=== PATIENT | female | born 1985 | race Hispanic/Latino ===

== ENCOUNTER 2016-08-28 20:31 | Emergency (ER) | payer MEDICAID ==
[2016-08-28 20:32] VITALS: BMI 29.2
[2016-08-28 20:51] VITALS: BP 107/90; PULSE 88; RESP 18; TEMP 99.3; O2SAT 100
[2016-08-28] MEDS ORDERED: Sodium Chloride 0.9% 1,000 ML IV STA (21:09)
[2016-08-28] MEDS ORDERED: DiphenhydrAMINE 50 mg/ml Inj IV STA ×2 (21:09→22:22)
[2016-08-28 22:03] LABS: BASO # 0.1 K/uL (0.0-0.2); BASO % 1.1 % (0.0-2.0); EOS # 0.1 K/uL (0.0-0.7); EOS % 1.4 % (0.0-4.0); HEMATOCRIT 37.9 % (34.0-47.0); LYMPH # 1.1 K/uL (1.0-4.3); LYMPH % 23.9 % (20.0-40.0); MEAN CELL VOLUME 96.3 fl (81.0-99.0); MEAN CORPUSCULAR HEMOGLOBIN 31.8 pg (27.0-31.0); MEAN PLATELET VOLUME 10.4 fl (7.2-11.7); MONO # 0.6 K/uL (0.0-0.8); NEUT # 2.7 K/uL (1.8-7.0); NEUT % 60.6 % (50.0-75.0); NRBC % 0.1 % (0.0-0.0); RED CELL DISTRIBUTION WIDTH 18.2 % (11.5-14.5); WHITE BLOOD COUNT 4.5 K/uL (4.8-10.8)
--- NOTE | 2016-08-28 22:21 | ED PDOC ---
HPI: Abdomen Time Seen by Provider: 08/28/16 20:58 Chief Complaint (Nursing): Abdominal Pain Chief Complaint (Provider): Abdominal Pain History Per: Patient History/Exam Limitations: no limitations Onset/Duration Of Symptoms: Days (14 days) Outside of [place] travel?: No Current Symptoms Are (Timing): Still Present Additional Complaint(s): Ila Castro, a 31 year old female, who has a past medical history of chronic abdominal pain and fibroids presents to the ED with abdominal pain x2 weeks. The patient reports that she was at [facility] 2 weeks ago for similar symptoms, she followed up with [facility] where she was given tramadol and zofran which offered no improvements. The patient has a history of multiple ED visits for the same complaints. She reports that she went [facility] earlier today but left because of the long wait. Past Medical History Vital Signs: Last Vital Signs Temp 99.3 F 08/28/16 20:45 Pulse 88 08/28/16 20:45 Resp 18 08/28/16 20:45 BP 107/90 08/28/16 20:45 Pulse Ox 100 08/28/16 22:28 - Medical History PMH: Anxiety, Asthma, Bipolar Disorder (Unknown), Depression, Gastritis, GERD Denies: HIV, Chronic Kidney Disease, Seizures, Sexually Transmitted Disease Other PMH: Chronic abdominal pain;Fibroids - Surgical History Surgical History: No Surg Hx - Family History Family History: States: Unknown Family Hx - Immunization History Hx Tetanus Toxoid Vaccination: Yes Hx Influenza Vaccination: No Hx Pneumococcal Vaccination: No - Home Medications Home Medications: Ambulatory Orders Medication Instructions Recorded Montelukast Sodium [Singulair] 10 mg PO DAILY 08/19/16 Omeprazole 20 mg PO DAILY 08/19/16 Ondansetron [Zofran Odt] 4 mg PO Q8 PRN #10 odt 08/19/16 Sertraline [Zoloft] 150 mg PO DAILY 08/19/16 traMADol [Ultram] 50 mg PO BID PRN #12 tab 08/19/16 traZODone [Desyrel] 50 mg PO HS 08/19/16 - Allergies Allergies/Adverse Reactions: Allergies Allergy/AdvReac Type Severity Reaction Status Date / Time ciprofloxacin [From Cipro] Allergy URTICARIA Verified 08/28/16 17:10 ciprofloxacin HCl Allergy URTICARIA Verified 08/28/16 17:10 [From Cipro] ketorolac tromethamine Allergy SHORTNESS Verified 08/28/16 17:10 [From Toradol] OF BREATH Review of Systems ROS Statement: Except As Marked, All Systems Reviewed And Found Negative Gastrointestinal: Positive for: Abdominal Pain Physical Exam - Reviewed Nursing Documentation Reviewed: Yes Vital Signs Reviewed: Yes - Physical Exam Appears: Positive for: Non-toxic, No Acute Distress (Tearful and crying) Head Exam: Positive for: ATRAUMATIC, NORMOCEPHALIC Skin: Positive for: Normal Color, Warm, Dry Eye Exam: Positive for: Normal appearance, EOMI, PERRL ENT: Positive for: Normal ENT Inspection Neck: Positive for: Normal, Painless ROM, Supple Cardiovascular/Chest: Positive for: Regular Rate, Rhythm, Chest Non Tender. Negative for: Tachycardia Respiratory: Positive for: Normal Breath Sounds. Negative for: Wheezing, Respiratory Distress Gastrointestinal/Abdominal: Positive for: Bowel Sounds, Soft, Tenderness (Mild diffuse lower abdominal tenderness.). Negative for: Guarding, Rebound Back: Positive for: Normal Inspection Extremity: Positive for: Normal ROM. Negative for: Tenderness, Deformity, Swelling Neurologic/Psych: Positive for: Alert, Oriented, Gait - Laboratory Results Result Diagrams: 08/28/16 21:48 08/28/16 21:48 - ECG O2 Sat by Pulse Oximetry: 100 (RA) Pulse Ox Interpretation: Normal Medical Decision Making Medical Decision Makin:58 Initial Impression: 31 year old female presenting with abdominal pain in setting of known chronic abdominal pain Initial Plan: * CMP * Drug screen * Lipase * Upreg * Udip * CBC * Benadryl 25mg * NS 1000 ml IV 1000mls/hr * Phernergan Inj 25mg IV * Urinalysis * US Pelvis/Transvaginal * Revaluation 0930 Patient was informed of narcotic policy at this facility and told that she will be treated for symptoms but will not receive opiates to which she was agreeable. Patient cited she has had multiple CT's and for this reason had no imaging done at [facility] when she was seen. 2315: Patient states she does not want to stay in the ED to complete workup and signed out AMA. She recited personal reasons, needing to attend to niece because her sister is unavailable. This patient is choosing to leave against medical advice. The EP has personally explained to the pt that choosing to do so may result in permanent bodily harm or . The EP discussed at great length that without further evaluation and monitoring there may be unforeseen circumstances and/or deterioration causing permanent bodily harm or as a result of their choice. The pt verbalized these risks back to the physician in laymans terms. The pt is alert , oriented, and shows the mental capacity to make clear decisions regarding the pts health care at this time. The pt continues to wish to leave against medical advice. In light of the pts decision to leave AMA, follow-up has been arranged and the pt is aware of the importance of following up as instructed. The pt has been advised that they should return to the ED immediately if they change their mind at any time, or if thier condition begins to change or worsen in any way. Scribe Attestation Documented by Lillie Carrasco acting as a scribe for Amarjit Zhong MD. Provider Attestation: All medical record entries made by the Scribe were at my direction and personally dictated by me. I have reviewed the chart and agree that the record accurately reflects my personal performance of the history, physical exam, medical decision making, and the department course for this patient. I have also personally directed, reviewed, and agree with the discharge instructions and disposition. Disposition - Clinical Impression Clinical Impression: Abdominal pain in female - Patient ED Disposition Is Patient to be Admitted: No - Disposition Disposition: Against Medical Advice Disposition Time: 23:15 Condition: STABLE Instructions: Against Medical Advice (ED)
[2016-08-28 22:28] LABS: ALB/GLOB RATIO 1.2 (1.0-2.1); ALKALINE PHOSPHATASE 64 U/L (38-126); ALT/SGPT 54 U/L (9-52); AST/SGOT 72 U/L (14-36); BILIRUBIN,TOTAL 0.7 mg/dl (0.2-1.3); BLOOD UREA NITROGEN 4 mg/dl (7-17); CALCIUM 8.8 mg/dL (8.4-10.2); CARBON DIOXIDE 20 mmol/L (22-30); CHLORIDE 105 mmol/L (98-107); GFR AFRICAN-AMERICAN > 60; GLUCOSE,RANDOM 83 mg/dL (65-105); LIPASE 113 U/L (23-300); SODIUM 137 mmol/l (132-148); TOTAL PROTEIN 7.4 G/DL (6.3-8.2)
[2016-08-28 23:15] LABS: RBC URINE 4 /hpf (0-3); URINE BACTERIA RARE (<OCC); URINE BILIRUBIN NEGATIVE (NEGATIVE); URINE BLOOD NEGATIVE (NEGATIVE); URINE COLOR YELLOW (YELLOW); URINE GLUCOSE (UA) NEG (Normal); URINE KETONE 80 mg/dL (NEGATIVE); URINE LEUKOCYTE ESTERASE NEG Leu/uL (Negative); URINE PROTEIN 30 mg/dL (NEGATIVE); URINE UROBILINOGEN 0.2-1.0 mg/dL (0.2-1.0); WBC URINE 1 /hpf (0-5)
--- NOTE | 2016-09-01 08:08 | CARD ---
APPROVED REPORT EKG Measurement Heart [id number] <Conclusion> Normal sinus rhythm Possible Left atrial enlargement Borderline ECG
== END 2016-08-28 23:10 | disposition left against medical advice (07) ==
LOC: H.ER 20:31
DX: D25.9 Leiomyoma of uterus, unspecified (principal); G89.29 Other chronic pain; J45.909 Unspecified asthma, uncomplicated; K21.9 Gastro-esophageal reflux disease without esophagitis

== ENCOUNTER 2017-09-14 07:17 | Emergency (ER) | payer MEDICAID ==
[2017-09-14 07:21] VITALS: RESP 16; TEMP 98.7; O2SAT 100; BMI 27.3
[2017-09-14] MEDS ORDERED: Sodium Chloride 0.9% 1,000 ML IV STA (07:50)
[2017-09-14 08:12] LABS: BASO % 0.6 % (0.0-2.0); EOS % 0.2 % (0.0-4.0); HEMOGLOBIN 14.5 g/dL (12.0-16.0); LYMPH # 0.7 K/uL (1.0-4.3); LYMPH % 9.7 % (20.0-40.0); MEAN CELL VOLUME 101.5 fl (81.0-99.0); MEAN CORPUSCULAR HEMOGLOBIN 34.9 pg (27.0-31.0); MEAN CORPUSCULAR HGB CONC 34.3 g/dL (33.0-37.0); MEAN PLATELET VOLUME 10.4 fl (7.2-11.7); MONO # 0.5 K/uL (0.0-0.8); NEUT # 6.1 K/uL (1.8-7.0); NEUT % 82.5 % (50.0-75.0); PLATELET COUNT 269 K/uL (130-400); RBC 4.15 Mil/uL (3.80-5.20); RED CELL DISTRIBUTION WIDTH 17.4 % (11.5-14.5); WHITE BLOOD COUNT 7.4 K/uL (4.8-10.8)
[2017-09-14 08:19] LABS: CALCIUM 9.4 mg/dL (8.4-10.2); GFR AFRICAN-AMERICAN > 60; GFR NON-AFRICAN AMERICAN > 60; LIPASE 203 U/L (23-300)
--- NOTE | 2017-09-14 08:24 | ED PDOC ---
HPI: Abdomen Time Seen by Provider: 09/14/17 07:24 Chief Complaint (Nursing): Abdominal Pain Chief Complaint (Provider): Abdominal Pain History Per: Patient History/Exam Limitations: no limitations Onset/Duration Of Symptoms: Days (x 4) Current Symptoms Are (Timing): Still Present Additional Complaint(s): 32-year-old female, with PMHx of Anxiety, presents to ED via EMS complaining of persistent vomiting since Saturday (4 days ago). Pt reports she has chronic anxiety and takes Klonopin 0.245 mg as needed. Pt reports vomiting as persuasively worsen. Pt noted fever last night and measured at 102. Pt reports lower abdominal pain. (-) diarrhea. (+) chills. (-) cough, (-) chest pain, (-) shortness of breath, (-) back pain, (-) rashes. Pt states she has not been able to tolerate her anti-anxiety medications. Pt reports last pill she vomited it out. Pt reports she recently was evaluated at [facility] where she as diagnosed with colitis and treated with amoxicillin and metronidazole. Pt discharged from hospital 1 to 2 days prior to onset of vomiting. Allergies: Cipro and Toradol PMD: Provider TBD Past Medical History Reviewed: Historical Data, Nursing Documentation, Vital Signs Vital Signs: Last Vital Signs Temp 98.7 F 09/14/17 07:19 Pulse 75 09/14/17 16:14 Resp 16 09/14/17 16:14 BP 125/80 09/14/17 16:14 Pulse Ox 100 09/14/17 16:14 - Medical History PMH: Anxiety, Asthma, Bipolar Disorder (Unknown), Depression, Gastritis, GERD Denies: HIV, Chronic Kidney Disease, Seizures, Sexually Transmitted Disease - Surgical History Surgical History: No Surg Hx - Family History Family History: States: No Known Family Hx - Social History Current smoker - smoking cessation education provided: No Alcohol: None Drugs: Denies - Immunization History Hx Tetanus Toxoid Vaccination: Yes Hx Influenza Vaccination: No Hx Pneumococcal Vaccination: No - Home Medications Home Medications: Ambulatory Orders Medication Instructions Recorded Montelukast Sodium [Singulair] 10 mg PO DAILY 08/19/16 Omeprazole 20 mg PO DAILY 08/19/16 Sertraline [Zoloft] 100 mg PO DAILY 08/19/16 Klonopin 0.5 mg PO DAILY PRN 09/16/16 Ondansetron ODT [Zofran ODT] 1 odt PO Q6 PRN #20 odt 09/14/17 - Allergies Allergies/Adverse Reactions: Allergies Allergy/AdvReac Type Severity Reaction Status Date / Time clonazepam [From Klonopin] Allergy Mild RASH Verified 09/14/17 07:22 ciprofloxacin [From Cipro] Allergy URTICARIA Verified 12/04/16 03:16 ciprofloxacin HCl Allergy URTICARIA Verified 12/04/16 03:16 [From Cipro] Iodinated Contrast- Oral and Allergy RASH Verified 09/08/17 05:13 IV Dye ketorolac tromethamine Allergy SHORTNESS Verified 12/04/16 03:16 [From Toradol] OF BREATH Review of Systems ROS Statement: Except As Marked, All Systems Reviewed And Found Negative Constitutional: Positive for: Fever. Negative for: Chills Cardiovascular: Negative for: Chest Pain Respiratory: Negative for: Shortness of Breath Gastrointestinal: Positive for: Vomiting, Abdominal Pain (lower). Negative for : Diarrhea Musculoskeletal: Negative for: Back Pain Skin: Negative for: Rash Physical Exam - Reviewed Nursing Documentation Reviewed: Yes Vital Signs Reviewed: Yes - Physical Exam Appears: Negative for: Well ((+) Anxious appearing, constantly gagging) Head Exam: Positive for: ATRAUMATIC, NORMAL INSPECTION, NORMOCEPHALIC Skin: Positive for: Normal Color, Warm, Dry Eye Exam: Positive for: EOMI, Normal appearance, PERRL ENT: Positive for: Normal ENT Inspection, Other (Muscous membrane is moist) Neck: Positive for: Supple (no nuchal rigidity) Cardiovascular/Chest: Positive for: Regular Rate, Rhythm (s1 and s2 heart sounds present) Respiratory: Positive for: Normal Breath Sounds (Lungs clear). Negative for: Respiratory Distress Gastrointestinal/Abdominal: Positive for: Tenderness (Diffuse tenderness, but greater in lower quadrants and epigastric area) Back: Positive for: L CVA Tenderness, R CVA Tenderness Extremity: Positive for: Normal ROM. Negative for: Deformity Neurologic/Psych: Positive for: Alert (x), Oriented (x 3). Negative for: Motor/ Sensory Deficits - Laboratory Results Result Diagrams: 09/14/17 07:57 09/14/17 07:57 Urine POC: Negative - ECG O2 Sat by Pulse Oximetry: 100 (RA) Pulse Ox Interpretation: Normal Medical Decision Making Medical Decision Making: Time: 07:50 Impression(s): Abdominal Pain, Nausea, Into Differentials include, but not limited to: Plan: - CMP - Lipase - ED Urine - ED Urine Dipstck - CBC (with differentials) - Obstructive Series X-Ray - Ativan 1 mg IVP - Morphine 2 mg IVP - Sodium Chloride 0.9% 1,000 ml IV 999 mls/hr - Pepcid 20 mg IVP - Zofran Inj 4 mg IVP Time: 10:41 - Ativan 2 mg IVP - CT Abdominal Pelvis PO Contrast - Morphinie 2 mg IV - Omnipaque 240 (50 ML) 50 ml PO Time: 11:32 Obstructive Series X-Ray FINDINGS: CHEST: Lungs: Clear. Cardiovascular: Normal size heart. No pulmonary vascular congestion. Pleura: No pleural fluid. No pneumothorax. Other findings: None. ABDOMEN AND PELVIS: Bowel: Unremarkable bowel gas pattern. No evidence of mechanical obstruction. Free air: None. Bones: Unremarkable. Other findings: None. IMPRESSION: Unremarkable radiographs of chest and abdomen. No evidence of mechanical bowel obstruction. Patient signed out to Dr. Salomon @ 15:00, pending CT scan, re-evaluation and final disposition. Scribe Attestation: Documented by Krish Zarate, acting as a scribe for Xiao Hassan MD. Provider Scribe Attestation: All medical record entries made by the Scribe were at my direction and personally dictated by me. I have reviewed the chart and agree that the record accurately reflects my personal performance of the history, physical exam, medical decision making, and the department course for this patient. I have also personally directed, reviewed, and agree with the discharge instructions and disposition. Disposition - Clinical Impression Clinical Impression: Colitis - Patient ED Disposition Is Patient to be Admitted: Transfer of Care - Disposition Referrals: Palmer Espinoza MD [Primary Care Provider] - 07/09/18 Disposition: Transfer of Care Disposition Time: 15:00 Condition: STABLE Additional Instructions: REST AND DRINK PLENTY OF HYDRATING FLUIDS. BLAND DIET ONLY. TAKE ALL YOUR MEDICATIONS PRESCRIBED. YOU WILL NEED TO OBTAIN ANXIETY MEDICATIONS FROM YOUR DOCTOR OR PSYCHIATRIST. JUAN J DIAZ, thank you for letting us take care of you today. Your provider was Marian Salomon MD and you were treated for VOMITING. The emergency medical care you received today was directed at your acute symptoms. If you were prescribed any medication, please fill it and take as directed. It may take several days for your symptoms to resolve. Return to the Emergency Department if your symptoms worsen, do not improve, or if you have any other problems. Please contact your doctor or call one of the physicians/clinics you have been referred to that are listed on the Patient Visit Information form that is included in your discharge packet. Bring any paperwork you were given at discharge with you along with any medications you are taking to your follow up visit. Our treatment cannot replace ongoing medical care by a primary care provider outside of the emergency department. Thank you for allowing the [facility] team to be part of your care today. If you had an X-Ray or CT scan: A Radiologist will review the ED reading if any change in treatment is needed we will contact you. If you had a blood, urine, or wound culture: It will take several days for the results, if any change in treatment is needed we will contact you. If you had an STI test: It will take 48 hours for the results. Please call after 1 week if you have not heard back. Prescriptions: Ondansetron ODT [Zofran ODT] 1 odt PO Q6 PRN #20 odt PRN Reason: Nausea/Vomiting Instructions: Anxiety, Adult (DC), Acute Abdomen (Belly Pain), Adult (DC) Forms: [employer] (Senegalese) Patient Signed Over To: Marian Salomon (Pending CT, re-evaluation and final disposition.) - POA Present On Arrival: None
[2017-09-14 08:26] LABS: ALB/GLOB RATIO 1.1 (1.0-2.1); ALBUMIN 4.2 g/dL (3.5-5.0); ALT/SGPT 42 U/L (9-52); AST/SGOT 78 U/L (14-36); BLOOD UREA NITROGEN 5 mg/dl (7-17)
[2017-09-14] MEDS ORDERED: Iohexol 240 (50 ml) PO ONE (10:41)
[2017-09-14] MEDS ORDERED: Barium Sulfate Susp 2.1% w/v, 2.0% w/w 450 mL Bottle PO ONE ×2 (11:09→11:10)
--- NOTE | 2017-09-14 11:34 | RAD ---
PROCEDURE: Radiographs of the chest and abdomen (obstructive series) HISTORY: abd pain and vomiting COMPARISON: CT scan of the abdomen pelvis dated 07/14/2014; chest radiograph dated 09/28/2012. TECHNIQUE: AP radiograph of the chest, with upright and supine radiographs of the abdomen. FINDINGS: CHEST: Lungs: Clear. Cardiovascular: Normal size heart. No pulmonary vascular congestion. Pleura: No pleural fluid. No pneumothorax. Other findings: None. ABDOMEN AND PELVIS: Bowel: Unremarkable bowel gas pattern. No evidence of mechanical obstruction. Free air: None. Bones: Unremarkable. Other findings: None. IMPRESSION: Unremarkable radiographs of chest and abdomen. No evidence of mechanical bowel obstruction.
[2017-09-14 11:50] LABS: BANDS 1 % (0-2); LYMPHOCYTE 11 % (20-50); MONOCYTE 4 % (0-10); NEUTROPHIL 84 % (42-75); TOTAL CELLS COUNTED 100
[2017-09-14] MEDS: Barium Sulfate Susp 2.1% w/v, 2.0% w/w 450 mL Bottle PO ONE ×2 (11:50→13:42)
[2017-09-14 11:51] LABS: ANISOCYTOSIS SLIGHT; PLATELET ESTIMATE NORMAL (NORMAL)
--- NOTE | 2017-09-14 15:05 | ED PDOC ---
- Laboratory Results Result Diagrams: 09/14/17 07:57 09/14/17 07:57 Urine POC: Negative - ECG O2 Sat by Pulse Oximetry: 100 (RA) - Progress ED Course And Treament: Discussed finding and plan of care with patient. Patient is concern of her anxiety and requesting prescription for Klonopin. Advised pt these meds are safest when prescribed by psychiatrist / primary doctor. Pt states she has an appointment with her primary doctor on Saturday. Patient is medically stable for discharge. Re-evaluation Time: 15:38 Condition: Re-examined Medical Decision Making Medical Decision Making: Time: 15:00 Patient care endorsed to me from Dr. Hassan pending CT scan, reevaluation, and final disposition. Time: 15:24 CT Abdomen and Pelvis without IV Contrast FINDINGS: LOWER THORAX: Unremarkable. LIVER: Diffuse hepatic steatosis. No gross lesion or ductal dilatation. GALLBLADDER AND BILE DUCTS: Unremarkable. PANCREAS: Unremarkable. No gross lesion or ductal dilatation. SPLEEN: Unremarkable. ADRENALS: Unremarkable. No mass. KIDNEYS AND URETERS: Unremarkable. No hydronephrosis. No solid mass. VASCULATURE: Unremarkable. No aortic aneurysm. BOWEL: Mild thickening of the sigmoid. No obstruction. No gross mural thickening. APPENDIX: Unremarkable. Normal appendix. PERITONEUM: Unremarkable. No free fluid. No free air. LYMPH NODES: Unremarkable. No enlarged lymph nodes. BLADDER: Unremarkable. REPRODUCTIVE: Multi fibroid uterus. BONES: No acute fracture. OTHER FINDINGS: None. IMPRESSION: Mild thickening of the sigmoid may be related to colitis versus underdistention. Scribe Attestation: Documented by Austin Garcia and Krish Zarate, acting as scribes for Marian Salomon MD. Provider Scribe Attestation: All medical record entries made by the Scribe were at my direction and personally dictated by me. I have reviewed the chart and agree that the record accurately reflects my personal performance of the history, physical exam, medical decision making, and the department course for this patient. I have also personally directed, reviewed, and agree with the discharge instructions and disposition. Disposition - Clinical Impression Clinical Impression: Colitis - POA Present On Arrival: None - Disposition Referrals: Palmer Espinoza MD [Primary Care Provider] - 09/16/17 Disposition: Routine/Home Disposition Time: 15:38 Condition: STABLE Additional Instructions: REST AND DRINK PLENTY OF HYDRATING FLUIDS. BLAND DIET ONLY. TAKE ALL YOUR MEDICATIONS PRESCRIBED. YOU WILL NEED TO OBTAIN ANXIETY MEDICATIONS FROM YOUR DOCTOR OR PSYCHIATRIST. JUAN J DIAZ, thank you for letting us take care of you today. Your provider was Marian Salomon MD and you were treated for VOMITING. The emergency medical care you received today was directed at your acute symptoms. If you were prescribed any medication, please fill it and take as directed. It may take several days for your symptoms to resolve. Return to the Emergency Department if your symptoms worsen, do not improve, or if you have any other problems. Please contact your doctor or call one of the physicians/clinics you have been referred to that are listed on the Patient Visit Information form that is included in your discharge packet. Bring any paperwork you were given at discharge with you along with any medications you are taking to your follow up visit. Our treatment cannot replace ongoing medical care by a primary care provider outside of the emergency department. Thank you for allowing the [facility] team to be part of your care today. If you had an X-Ray or CT scan: A Radiologist will review the ED reading if any change in treatment is needed we will contact you. If you had a blood, urine, or wound culture: It will take several days for the results, if any change in treatment is needed we will contact you. If you had an STI test: It will take 48 hours for the results. Please call after 1 week if you have not heard back. Prescriptions: Ondansetron ODT [Zofran ODT] 1 odt PO Q6 PRN #20 odt PRN Reason: Nausea/Vomiting Instructions: Anxiety, Adult (DC), Acute Abdomen (Belly Pain), Adult (DC) Forms: [employer] (Malagasy)
--- NOTE | 2017-09-14 15:25 | CT ---
PROCEDURE: CT Abdomen and Pelvis without intravenous contrast HISTORY: colitis dx'd at [facility], persistent pain COMPARISON: CT scan of the abdomen pelvis dated 07/14/2014. TECHNIQUE: Contiguous images were obtained from the domes of the diaphragms to the upper thighs without the administration of intravenous contrast. Oral contrast was administered. Radiation dose: Total exam DLP = 426.5 mGy-cm. This CT exam was performed using one or more of the following dose reduction techniques: Automated exposure control, adjustment of the mA and/or kV according to patient size, and/or use of iterative reconstruction technique. FINDINGS: LOWER THORAX: Unremarkable. LIVER: Diffuse hepatic steatosis. No gross lesion or ductal dilatation. GALLBLADDER AND BILE DUCTS: Unremarkable. PANCREAS: Unremarkable. No gross lesion or ductal dilatation. SPLEEN: Unremarkable. ADRENALS: Unremarkable. No mass. KIDNEYS AND URETERS: Unremarkable. No hydronephrosis. No solid mass. VASCULATURE: Unremarkable. No aortic aneurysm. BOWEL: Mild thickening of the sigmoid. No obstruction. No gross mural thickening. APPENDIX: Unremarkable. Normal appendix. PERITONEUM: Unremarkable. No free fluid. No free air. LYMPH NODES: Unremarkable. No enlarged lymph nodes. BLADDER: Unremarkable. REPRODUCTIVE: Multi fibroid uterus. BONES: No acute fracture. OTHER FINDINGS: None. IMPRESSION: Mild thickening of the sigmoid may be related to colitis versus underdistention.
[2017-09-14 16:15] VITALS: BP 125/80; PULSE 75
== END 2017-09-14 16:14 | disposition home or self-care (01) ==
LOC: H.ER 07:17
DX: K52.9 Noninfective gastroenteritis and colitis, unspecified (principal); J45.909 Unspecified asthma, uncomplicated; K21.9 Gastro-esophageal reflux disease without esophagitis; Z86.59 Personal history of other mental and behavioral disorders
CPT/HCPCS: 74022; 74176; 80053; 81025; 83690; 85025; 96361; 96374; 96375; 96376; 99284; J2060; J2270; J2405; J7030